=== PATIENT | female | born 1995 | race Caucasian/White ===

== ENCOUNTER 2020-02-05 06:28 | Day surgery (SDC) | payer OTHER ==
[2020-02-01 11:15] LABS: BASOPHILS 0.4 % (0-2); EOSINOPHILS 2.8 % (0-7); HEMATOCRIT 44.4 % (36.0-48.0); HEMOGLOBIN 14.1 g/dL (12-16); IMMATURE GRANULOCYTES 0.2 % (0-5); LYMPHOCYTES 27.1 % (15-50); MCH 29.1 pg (26.0-34.0); MCHC 31.8 g/dL (31.0-37.0); MCV 91.5 fL (80.0-100.0); MEAN PLATELET VOLUME 10.6 fL (7.4-10.4); MONOCYTES 10.4 % (2-11); NEUTROPHILS 59.1 % (40-80); PLATELET COUNT 169 10x3/uL (130-400); RBC 4.85 10x6/uL (4.00-5.40); RDW 15.5 % (11.5-14.5)
[2020-02-01 11:19] LABS: UDS - AMPHET NEGATIVE QUAL (NEGATIVE); UDS - BARB NEGATIVE QUAL (NEGATIVE); UDS - BENZO NEGATIVE QUAL (NEGATIVE); UDS - COCAINE NEGATIVE QUAL (NEGATIVE); UDS - OPIATE NEGATIVE QUAL (NEGATIVE); UDS - PCP NEGATIVE QUAL (NEGATIVE); UDS - THC POSITIVE QUAL (NEGATIVE)
[~2020-02-05] VITALS: Ht 152.4 cm; Wt 49.0 kg
--- NOTE | ~2020-02-05 | OP ---
PATIENT NAME: KELLEN FLANNERY MEDICAL RECORD: [id number] :96 LOCATION:D.OPS ADMISSION DATE: SURGEON: HIRAM MENENDEZ MD DATE OF OPERATION: 02/05/2020 PREOPERATIVE DIAGNOSIS: 1. Pelvic pain. POSTOPERATIVE DIAGNOSES: 1. Pelvic pain. 2. Active endometriosis. PROCEDURES: Diagnostic laparoscope. SURGEON: Hiram Menendez MD ANESTHESIOLOGIST: Dr. Del Valle ASSEMBLY MECHANIC: Shyam Hyde ANESTHETIC: General. FINDINGS: Enlarged uterus, possibly representing adenomyosis. There is active, endometriosis noted in the right cul-de-sac and left margin of the uterus. It is consistent with powder burn lesions. SPECIMENS REMOVED: None. SPECIMEN DISPOSITION: None applicable. ESTIMATED BLOOD LOSS: Minimal. FLUIDS: 1100 cc. URINE OUTPUT: Quantity sufficient void prior to this procedure. COMPLICATIONS: None. DRAINS: None. INDICATIONS: The patient is a 24-year-old female with pelvic pain, dyspareunia. The patient is considered for diagnostic laparoscopy and any indicated procedure. DESCRIPTION OF PROCEDURE: After informed consent was assured, the patient was taken to the operating room were anesthetic was obtained without difficulty. The patient is now prepped and draped in the usual sterile fashion. An incision is made to accommodate a 5-mm trocar, which was inserted without difficulty. The patient is placed in steep Trendelenburg position. Using a Veress needle, it is placed 2 fingerbreadths above the symphysis, this instrument was used to sweep the bowel free of the pelvis and elevate the uterus with the above findings. After survey of the pelvis and upper abdomen is complete. The pneumoperitoneum was released and the trocar removed. The skin was closed with a subcuticular stitch and Dermabond was applied. Sponge, lap, needle counts were correct times 2. The patient was awakened and went to the recovery room in OPERATIVE REPORT [id number] KELLEN FLANNERY stable condition. TRANSINT:[id number] Voice Confirmation ID: [id number] DOCUMENT ID: [id number] HIRAM MENENDEZ MD CC: [id number] DICTATION DATE: 02/13/20 1643 OPERATING ROOM TECHNICIAN: 02/14/20 [id number] [facility] 02/05/20 [facility] [address] [place] [address]
[2020-02-05] MEDS ORDERED: CYCLOBENZAPRINE5 MG PO (07:03)
[2020-02-05 07:04] VITALS: BP 117/76; Ht 152.4 cm; Wt 49.0 kg
[2020-02-05 07:11] LABS: HCG URINE NEGATIVE (NEGATIVE)
--- NOTE | 2020-02-05 17:14 | NUR ---
1257 PT AWAKENED TO ATTEMPT TO VOID. ASSISTED PT TO BR WITHOUT INCIDENT. 1301 PT VOIDED WITHOUT DIFFICULTY AND ASSISTED BACK TO BED. IV DC'D. CATHETER TIP INTACT. NO BLEEDING AT SITE. BANDAID APPLIED. PT C/O EARLIER OF BURNING IN UMBILICUS SITE AND WAS MEDICATED WTIH PERCOCET. PAIN LEVEL WAS A 5 OUT OF 10 BUT DECREASED TO 0 WHEN STILL. PT STATES SHE IS READY TO GO HOME AND STATES SHE HAS RECOVERED BETTER THIS TIME THAN THE PREVIOUS LAPAROSCOPY.
== END 2020-02-05 13:29 | disposition home or self-care (01) ==
LOC: D.OPS 06:28 → D.PAN 07:00 → D.OPS 08:00 → D.PAN 08:30 → D.OPS 08:30
PROVIDERS: ATTEND Obstetrics & Gynecology
DX: R10.2 Pelvic and perineal pain (principal); N93.9 Abnormal uterine and vaginal bleeding, unspecified